=== PATIENT | female | born 1965 | race Two or more races ===

== ENCOUNTER 2017-10-19 12:24 | Emergency (ER) | payer OTHER, MEDICAID ==
[~2017-10-19] VITALS: Ht 157.5 cm; Wt 79.4 kg
[2017-10-19 12:31] VITALS: BP 162/71
[2017-10-19 14:11] LABS: BUN/Creatinine Ratio 6.1; Calcium 9.4 mg/dL (8.5-10.1); Potassium 5.3 mmol/L (3.5-5.1)
== END 2017-10-19 14:46 | disposition home or self-care (01) ==
LOC: ER 12:24
DX: R42 Dizziness and giddiness (principal); R79.9 Abnormal finding of blood chemistry, unspecified; E11.22 Type 2 diabetes mellitus with diabetic chronic kidney disease; I12.0 Hypertensive chronic kidney disease with stage 5 chronic kidney disease or end stage renal disease; N18.6 End stage renal disease; E78.5 Hyperlipidemia, unspecified; Z98.51 Tubal ligation status; Z87.891 Personal history of nicotine dependence
CPT/HCPCS: 36415; 80048; 93005

== ENCOUNTER 2017-12-04 12:08 | Inpatient (IN) | payer MEDICARE, MEDICAID ==
[~2017-12-04] VITALS: Ht 157.5 cm; Wt 84.3 kg
[2017-12-04] MEDS ORDERED: cloNIDine HCL 0.1 MG TAB ONE (12:29)
[2017-12-04] MEDS ORDERED: cloNIDine HCL 0.1 MG TAB PO ONE (12:30)
[2017-12-04] MEDS ORDERED: ONDANSETRON ODT 4 MG TAB PO ONE (12:45)
[2017-12-04 14:23] LABS: Basophils # (auto) 0.1 uL; Basophils % (auto) 0.6 % (0.0-2.0); Eosinophils # (auto) 0 uL; Eosinophils % (auto) 0.2 % (0.0-7.0); Hematocrit 39.3 % (36.0-46.0); Hemoglobin 12.9 g/dL (12.2-16.2); Lymphocytes # (auto) 0.5 uL; Mean Corpuscular Hemoglobin 30.3 pg (28.0-32.0); Mean Corpuscular Hgb Conc. 32.9 g/dL (32.0-36.0); Mean Corpuscular Volume 91.9 fL (80.0-100.0); Monocytes # (auto) 0.2 uL; Neutrophils # (auto) 10.9 uL; Neutrophils % (auto) 93.2 % (37.0-80.0); Platelet Count (auto) 241 10^3/uL (140-450); Red Blood Cells 4.28 10^6/uL (4.0-5.20); Red Cell Distribution Width 14.9 % (11.8-14.3); White Blood Cell 11.8 10^3/uL (4.4-10.8)
[2017-12-04 14:37] LABS: INR 0.98 (0.9-1.15); Partial Thromboplastin Time 28.7 sec (23.78-33.04); Prothrombin Time 10.5 sec (9.27-12.13)
[2017-12-04 14:51] LABS: Albumin 3.6 g/dL (3.4-5.0); BUN/Creatinine Ratio 5.8; Calcium 9.1 mg/dL (8.5-10.1)
[2017-12-04] MEDS ORDERED: LABETALOL HCL 5 MG/ML ML 20ML VIAL IV ONE (15:45)
[2017-12-04] MEDS: NICARDIPINE 25MG/250ML BAG KIT 250 ML IV SCH ×3 (17:27→20:39)
[2017-12-04] MEDS ORDERED: LABETALOL HCL 5 MG/ML ML 20ML VIAL IV PRN (18:15)
[2017-12-04] MEDS ORDERED: NITROGLYCERIN 0.4 MG SL TAB SL PRN (18:30)
[2017-12-04] MEDS ORDERED: FUROSEMIDE 40 MG/4 ML VIAL IV ONE (18:30)
[2017-12-04] MEDS ORDERED: ACETAMINOPHEN 325 MG TAB PO PRN (18:30)
[2017-12-04] MEDS ORDERED: TEMAZEPAM 15 MG CAP PO PRN (18:30)
[2017-12-04] MEDS ORDERED: DOCUSATE SOD 100 MG CAP PO PRN (18:30)
[2017-12-04] MEDS ORDERED: MORPHINE SULF INJ 2 MG/ML SYRINGE 1ML IV PRN ×2 (18:30)
[2017-12-04] MEDS ORDERED: cefTRIAXone 1GM/10ml IVPUSH 10 ML IV ONE (21:00)
[2017-12-04] MEDS: FAMOTIDINE 20 MG TAB PO SCH (21:48)
[2017-12-04] MEDS: cloNIDine HCL 0.1 MG TAB PO SCH (22:24)
[2017-12-04] MEDS: ATORVASTATIN 20 MG TAB PO SCH (22:24)
[2017-12-04] MEDS: SODIUM CHLOR 0.9% PF (SALINE LOCK) 10ML VIAL/SYR IV SCH (22:24)
[2017-12-04] MEDS: ACCU-CHEK COMFORT CURVE STRIP VI SCH (22:33)
[2017-12-04] MEDS: INSULIN LANTUS (GLARGINE) 1 /0.01ml (100units/ml) SC SCH (22:36)
[2017-12-04] MEDS: InsuLIN REG 1unit/0.01ml Soln (100units/ml) SC SCH (22:36)
[2017-12-04] MEDS: METOPROLOL TARTRATE 50 MG TAB PO SCH (23:10)
[2017-12-05] MEDS: NICARDIPINE 25MG/250ML BAG KIT 250 ML IV SCH ×2 (01:04→06:04)
[2017-12-05] MEDS: cloNIDine HCL 0.1 MG TAB PO PRN ×4 (04:19→17:48)
[2017-12-05 05:00] VITALS: BP 157/66
[2017-12-05] MEDS: SODIUM CHLOR 0.9% PF (SALINE LOCK) 10ML VIAL/SYR IV SCH ×3 (06:29→22:01)
[2017-12-05] MEDS: ACCU-CHEK COMFORT CURVE STRIP VI SCH ×4 (07:06→22:00)
[2017-12-05] MEDS: INSULIN LANTUS (GLARGINE) 1 /0.01ml (100units/ml) SC SCH ×2 (07:07→22:00)
[2017-12-05] MEDS: InsuLIN REG 1unit/0.01ml Soln (100units/ml) SC SCH ×4 (07:08→22:00)
[2017-12-05] MEDS: INSULIN LISPRO (HUMAN) 100 UNITS/ML ML SC SCH ×3 (07:08→16:48)
[2017-12-05 08:00] VITALS: BP 165/72
[2017-12-05] MEDS: ONDANSETRON HCL 4 MG/2 ML VIAL IV PRN ×2 (08:09→15:34)
[2017-12-05] MEDS: cloNIDine HCL 0.1 MG TAB PO SCH ×2 (09:58→21:56)
[2017-12-05] MEDS: FUROSEMIDE 40 MG/4 ML VIAL IV SCH (09:58)
[2017-12-05] MEDS: cefTRIAXone 1GM/10ml IVPUSH 10 ML IV SCH (09:58)
[2017-12-05] MEDS: METOPROLOL TARTRATE 50 MG TAB PO SCH ×2 (09:58→11:49)
[2017-12-05] MEDS: ASPirin-EC 81 mg tab PO SCH (09:58)
[2017-12-05] MEDS: MULTIPLE VITAMIN TAB PO SCH (09:59)
[2017-12-05 10:36] LABS: Basophils # (auto) 0.1 uL; Basophils % (auto) 0.4 % (0.0-2.0); Eosinophils # (auto) 0.1 uL; Eosinophils % (auto) 0.8 % (0.0-7.0); Hematocrit 38.5 % (36.0-46.0); Hemoglobin 12.3 g/dL (12.2-16.2); Lymphocytes # (auto) 1.2 uL; Lymphocytes % (auto) 9.4 % (10.0-50.0); Mean Corpuscular Hemoglobin 29.5 pg (28.0-32.0); Mean Corpuscular Hgb Conc. 31.9 g/dL (32.0-36.0); Mean Corpuscular Volume 92.6 fL (80.0-100.0); Monocytes # (auto) 0.6 uL; Monocytes % (auto) 4.4 % (0.0-12.0); Neutrophils # (auto) 11.1 uL; Platelet Count (auto) 250 10^3/uL (140-450); Red Blood Cells 4.16 10^6/uL (4.0-5.20); Red Cell Distribution Width 14.8 % (11.8-14.3)
[2017-12-05 10:53] LABS: Albumin 3.2 g/dL (3.4-5.0); BUN/Creatinine Ratio 6.1; Calcium 8.5 mg/dL (8.5-10.1); Potassium 4.9 mmol/L (3.5-5.1)
[2017-12-05 11:01] LABS: Bilirubin, Total 0.8 mg/dL (0.2-1.0); Total Protein 7.6 g/dL (6.4-8.2)
[2017-12-05] MEDS: DEXTROSE (50%) 50ML SYRG IV PRN (11:38)
[2017-12-05] MEDS: HYDROcodone-ACET 5/325MG TAB PO PRN ×2 (11:46→15:30)
[2017-12-05 12:41] VITALS: BP 159/70
[2017-12-05] MEDS ORDERED: cloNIDine HCL 0.1 MG TAB PO ONE (16:15)
[2017-12-05 16:46] VITALS: BP 231/89
[2017-12-05 20:00] VITALS: BP 197/86
[2017-12-05 21:42] VITALS: BP 197/86
[2017-12-05] MEDS: ATORVASTATIN 20 MG TAB PO SCH (22:00)
[2017-12-06] VITALS (7 sets, daily range): BP systolic 119–161; BP diastolic 51–77
[2017-12-06] MEDS: cloNIDine HCL 0.1 MG TAB PO PRN (00:22)
[2017-12-06] MEDS ORDERED: hydrALAZINE HCL 20 MG/ML VL IV ONE (02:30)
[2017-12-06] MEDS: ACCU-CHEK COMFORT CURVE STRIP VI SCH ×4 (06:42→22:00)
[2017-12-06] MEDS: InsuLIN REG 1unit/0.01ml Soln (100units/ml) SC SCH ×4 (06:43→22:00)
[2017-12-06] MEDS: INSULIN LISPRO (HUMAN) 100 UNITS/ML ML SC SCH ×3 (06:43→16:37)
[2017-12-06] MEDS: INSULIN LANTUS (GLARGINE) 1 /0.01ml (100units/ml) SC SCH ×2 (06:43→22:00)
[2017-12-06] MEDS: SODIUM CHLOR 0.9% PF (SALINE LOCK) 10ML VIAL/SYR IV SCH ×3 (06:44→22:10)
[2017-12-06 07:25] LABS: Basophils # (auto) 0 uL; Basophils % (auto) 0.5 % (0.0-2.0); Eosinophils # (auto) 0.1 uL; Eosinophils % (auto) 0.9 % (0.0-7.0); Hematocrit 39.6 % (36.0-46.0); Hemoglobin 13.1 g/dL (12.2-16.2); Lymphocytes # (auto) 1.1 uL; Lymphocytes % (auto) 10.9 % (10.0-50.0); Mean Corpuscular Hemoglobin 30.5 pg (28.0-32.0); Mean Corpuscular Hgb Conc. 33.1 g/dL (32.0-36.0); Mean Corpuscular Volume 92.3 fL (80.0-100.0); Monocytes # (auto) 0.7 uL; Monocytes % (auto) 6.3 % (0.0-12.0); Neutrophils # (auto) 8.6 uL; Neutrophils % (auto) 81.4 % (37.0-80.0); Nucleated Red Blood Cells % 0.1 %; Platelet Count (auto) 256 10^3/uL (140-450); Red Blood Cells 4.29 10^6/uL (4.0-5.20); Red Cell Distribution Width 15.4 % (11.8-14.3); White Blood Cell 10.5 10^3/uL (4.4-10.8)
[2017-12-06 07:45] LABS: Albumin 3.4 g/dL (3.4-5.0); BUN/Creatinine Ratio 4.9; Calcium 8.6 mg/dL (8.5-10.1); Potassium 4.1 mmol/L (3.5-5.1); Total Protein 7.6 g/dL (6.4-8.2)
[2017-12-06] MEDS: cefTRIAXone 1GM/10ml IVPUSH 10 ML IV SCH (09:22)
[2017-12-06] MEDS: FUROSEMIDE 40 MG/4 ML VIAL IV SCH (09:23)
[2017-12-06] MEDS: ONDANSETRON HCL 4 MG/2 ML VIAL IV PRN (09:23)
[2017-12-06] MEDS: METOPROLOL TARTRATE 50 MG TAB PO SCH ×3 (09:24→22:13)
[2017-12-06] MEDS: MULTIPLE VITAMIN TAB PO SCH (09:24)
[2017-12-06] MEDS: ASPirin-EC 81 mg tab PO SCH (09:24)
[2017-12-06] MEDS: cloNIDine HCL 0.1 MG TAB PO SCH ×2 (09:24→22:12)
[2017-12-06] MEDS ORDERED: NIFEdipine ER 30 MG TAB PO ONE (11:15)
[2017-12-06] MEDS: DEXTROSE (50%) 50ML SYRG IV PRN (16:33)
[2017-12-06] MEDS: HYDROcodone-ACET 5/325MG TAB PO PRN (20:40)
[2017-12-06] MEDS: FAMOTIDINE 20 MG TAB PO SCH (22:10)
[2017-12-06] MEDS: hydrALAZINE HCL 25 MG TAB PO SCH (22:11)
[2017-12-06] MEDS: ATORVASTATIN 20 MG TAB PO SCH (22:13)
[2017-12-07 05:00] VITALS: BP 135/61
[2017-12-07] MEDS: SODIUM CHLOR 0.9% PF (SALINE LOCK) 10ML VIAL/SYR IV SCH ×2 (06:18→14:00)
[2017-12-07] MEDS: hydrALAZINE HCL 25 MG TAB PO SCH ×2 (06:20→14:00)
[2017-12-07] MEDS: ACCU-CHEK COMFORT CURVE STRIP VI SCH ×2 (06:53→13:03)
[2017-12-07] MEDS: InsuLIN REG 1unit/0.01ml Soln (100units/ml) SC SCH ×2 (06:54→12:52)
[2017-12-07] MEDS: INSULIN LANTUS (GLARGINE) 1 /0.01ml (100units/ml) SC SCH (06:54)
[2017-12-07] MEDS: INSULIN LISPRO (HUMAN) 100 UNITS/ML ML SC SCH ×2 (06:55→11:30)
[2017-12-07 07:56] LABS: Basophils # (auto) 0 uL; Basophils % (auto) 0.6 % (0.0-2.0); Eosinophils # (auto) 0.2 uL; Eosinophils % (auto) 1.8 % (0.0-7.0); Hematocrit 39.7 % (36.0-46.0); Lymphocytes % (auto) 11.3 % (10.0-50.0); Mean Corpuscular Hemoglobin 30.1 pg (28.0-32.0); Mean Corpuscular Hgb Conc. 32.7 g/dL (32.0-36.0); Mean Corpuscular Volume 92.2 fL (80.0-100.0); Monocytes # (auto) 0.6 uL; Monocytes % (auto) 6.9 % (0.0-12.0); Neutrophils % (auto) 79.4 % (37.0-80.0); Nucleated Red Blood Cells % 0.1 %; Platelet Count (auto) 246 10^3/uL (140-450); Red Cell Distribution Width 14.9 % (11.8-14.3); White Blood Cell 8.8 10^3/uL (4.4-10.8)
[2017-12-07 08:10] LABS: Albumin 3.2 g/dL (3.4-5.0); BUN/Creatinine Ratio 6.1; Bilirubin, Total 0.9 mg/dL (0.2-1.0); Calcium 8.6 mg/dL (8.5-10.1); Potassium 4.7 mmol/L (3.5-5.1); Total Protein 7.3 g/dL (6.4-8.2)
[2017-12-07 09:00] VITALS: BP 118/64
[2017-12-07] MEDS ORDERED: NIFEdipine ER 30 MG TAB PO SCH (10:00)
[2017-12-07] MEDS: cloNIDine HCL 0.1 MG TAB PO SCH (10:00)
[2017-12-07] MEDS ORDERED: SODIUM CHL 0.9% 1000 ML BAG XX ONE (12:00)
[2017-12-07] MEDS: MULTIPLE VITAMIN TAB PO SCH (12:52)
[2017-12-07] MEDS: ASPirin-EC 81 mg tab PO SCH (12:52)
[2017-12-07 13:00] VITALS: BP 147/69
[2017-12-07 14:15] VITALS: BP 147/69
[2017-12-07] MEDS: FUROSEMIDE 40 MG/4 ML VIAL IV SCH (15:16)
[2017-12-07 16:35] VITALS: BP 145/67
== END 2017-12-07 15:30 | disposition home or self-care (01) | DRG 291 ==
LOC: ER 12:08 → TELE 12:09 → TELE-WESTW 12-05 01:15
PROVIDERS: ADMIT Internal Medicine; ATTEND Family Medicine
PROC: 5A1D70Z Performance of Urinary Filtration, Intermittent, Less than 6 Hours Per Day (ICD-10-PCS; principal; 2017-12-05)
DX: I13.2 Hypertensive heart and chronic kidney disease with heart failure and with stage 5 chronic kidney disease, or end stage renal disease (principal); N18.6 End stage renal disease; I50.43 Acute on chronic combined systolic (congestive) and diastolic (congestive) heart failure; N39.0 Urinary tract infection, site not specified; N25.81 Secondary hyperparathyroidism of renal origin; K29.00 Acute gastritis without bleeding; Z99.2 Dependence on renal dialysis; E78.5 Hyperlipidemia, unspecified; Z95.1 Presence of aortocoronary bypass graft; I25.10 Atherosclerotic heart disease of native coronary artery without angina pectoris; E11.21 Type 2 diabetes mellitus with diabetic nephropathy; E11.22 Type 2 diabetes mellitus with diabetic chronic kidney disease; E78.00 Pure hypercholesterolemia, unspecified; K57.90 Diverticulosis of intestine, part unspecified, without perforation or abscess without bleeding; Z82.49 Family history of ischemic heart disease and other diseases of the circulatory system; Z83.3 Family history of diabetes mellitus
CPT/HCPCS: 36415; 71045; 74176; 80053; 82962; 83036; 83605; 83880; 84484; 85025; 85610; 85730; 87040; 87081; 87086; 90935; 93005; 93306; 96374; 96375; J0696; J1642; J1815; J2405; Q0162

== ENCOUNTER 2021-03-31 20:34 | Inpatient (IN) | payer MEDICARE, MEDICAID ==
[~2021-03-31] VITALS: Ht 157.5 cm; Wt 77.1 kg
[2021-03-31] MEDS ORDERED: fentaNYL CITRATE 100 MCG/2 ML VL IV ONE (21:00)
[2021-03-31] MEDS ORDERED: MAGNESIUM SULFATE 1GM/100ML 100 ML IV ONE (21:15)
[2021-03-31] MEDS ORDERED: CALCIUM GLUC 1,000mg/50ml-NS 50 ML IV ONE (21:15)
[2021-03-31] MEDS ORDERED: DOPamine 1600MCG/ML D5W 250 ML IV ONE (21:25)
[2021-03-31 21:30] LABS: Albumin 1.9 g/dL (3.4-5.0); Calcium 9.3 mg/dL (8.5-10.1); Potassium 4.5 mmol/L (3.5-5.1)
[2021-03-31 21:39] LABS: BUN/Creatinine Ratio 11.1; Bilirubin, Total 0.5 mg/dL (0.2-1.0); Total Protein 4.4 g/dL (6.4-8.2)
[2021-03-31] MEDS ORDERED: DOPamine 1600MCG/ML D5W 250 ML IV SCH (21:45)
[2021-03-31] MEDS: DOPamine 1600MCG/ML D5W 250 ML IV SCH (22:00)
[2021-03-31] MEDS: NOREPINEPHRINE 8 MG/250ML KIT 250 ML IV SCH ×2 (22:13→23:00)
[2021-03-31 22:44] LABS: Basophils # (auto) 0.1 10 ^3/uL (0-0.2); Basophils % (auto) 0.6 % (0.0-2.0); Eosinophils # (auto) 0 10 ^3/uL (0-0.8); Eosinophils % (auto) 0.2 % (0.0-7.0); Hematocrit 31.8 % (36.0-46.0); Lymphocytes # (auto) 0.8 10 ^3/uL (0.4-5.4); Lymphocytes % (auto) 6.4 % (10.0-50.0); Mean Corpuscular Hemoglobin 28.3 pg (28.0-32.0); Mean Corpuscular Hgb Conc. 31.5 g/dL (32.0-36.0); Mean Corpuscular Volume 89.9 fL (80.0-100.0); Monocytes # (auto) 0.5 10 ^3/uL (0-1.3); Monocytes % (auto) 4.4 % (0.0-12.0); Neutrophils # (auto) 10.6 10 ^3/uL (1.6-8.6); Neutrophils % (auto) 88.4 % (37.0-80.0); Red Blood Cells 3.54 10^6/uL (4.0-5.20); Red Cell Distribution Width 15.9 % (11.8-14.3)
[2021-03-31] MEDS ORDERED: LORazepam 2MG/ML-1ML VIAL IV ONE (22:45)
[2021-03-31 23:02] LABS: Albumin 3.2 g/dL (3.4-5.0); Calcium 8.6 mg/dL (8.5-10.1)
[2021-03-31 23:09] LABS: BUN/Creatinine Ratio 11.3
[2021-03-31 23:10] LABS: Total Protein 7.3 g/dL (6.4-8.2)
[2021-03-31 23:12] LABS: Potassium 7.3 mmol/L (3.5-5.1)
[2021-03-31 23:13] LABS: Magnesium 4.5 mg/dL (1.6-2.6)
[2021-03-31] MEDS ORDERED: diphenhdrAMINE HCL 50 MG/1 ML VL IV ONE (23:30)
[2021-04-01] MEDS ORDERED: CALCIUM GLUC 1,000mg/50ml-NS 50 ML IV ONE ×4 (00:45→20:00)
[2021-04-01] MEDS ORDERED: SODIUM ZIRCONIUM CYCL 10 GM PAK PO ONE ×3 (00:45→06:45)
[2021-04-01] MEDS ORDERED: MORPHINE SULFATE 4 MG/ML SYR/VIAL IV ONE (01:45)
[2021-04-01] MEDS ORDERED: ONDANSETRON HCL 4 MG/2 ML VIAL ONE (02:15)
[2021-04-01] MEDS ORDERED: ONDANSETRON HCL 4 MG/2 ML VIAL IV ONE (02:30)
[2021-04-01] MEDS ORDERED: NITROGLYCERIN 0.4 MG SL TAB SL PRN (03:45)
[2021-04-01] MEDS ORDERED: ONDANSETRON HCL 4 MG/2 ML VIAL IV PRN (03:45)
[2021-04-01] MEDS ORDERED: ACETAMINOPHEN 325 MG TAB PO PRN (03:45)
[2021-04-01] MEDS ORDERED: DEXTROSE (50%) 50ML SYRG IV PRN (03:45)
[2021-04-01] MEDS ORDERED: MORPHINE SULFATE INJECTION 2 MG/ML SYRG IV PRN (03:45)
[2021-04-01 04:50] LABS: BUN/Creatinine Ratio 10.8
[2021-04-01] MEDS: ACCU-CHEK COMFORT CURVE STRIP VI SCH ×4 (06:41→22:30)
[2021-04-01] MEDS ORDERED: InsuLIN REG 1unit/0.01ml Soln (100units/ml) IV ONE ×2 (06:45→20:00)
[2021-04-01] MEDS ORDERED: ALBUTEROL SULF 2.5 MG/0.5ML(0.5%) NEB SOLN NEB ONE (06:45)
[2021-04-01] MEDS ORDERED: DEXTROSE (50%) 50ML SYRG IV ONE ×2 (06:45→20:00)
[2021-04-01] MEDS ORDERED: SODIUM BICARBONATE 8.4 % INJ 50ML VIAL IV ONE (06:45)
[2021-04-01] MEDS: InsuLIN REG 1unit/0.01ml Soln (100units/ml) SC SCH ×4 (06:50→22:30)
[2021-04-01] MEDS ORDERED: SODIUM CHL 0.9% 1000 ML BAG XX ONE (07:45)
[2021-04-01] MEDS ORDERED: diphenhdrAMINE HCL 50 MG/1 ML VL IV ONE (08:30)
[2021-04-01] MEDS ORDERED: LORazepam 0.5 MG TAB PO ONE (10:00)
[2021-04-01] MEDS ORDERED: LORazepam 0.5 MG TAB ONE (10:03)
[2021-04-01] MEDS: PANTOPRAZOLE 40 MG TAB PO SCH (10:12)
[2021-04-01] MEDS: DOPamine 1600MCG/ML D5W 250 ML IV SCH (13:50)
[2021-04-01] MEDS: HYDROcodone-ACET 5/325MG TAB PO PRN ×2 (15:46→22:00)
[2021-04-01 17:06] LABS: Basophils # (auto) 0 10 ^3/uL (0-0.2); Basophils % (auto) 0.6 % (0.0-2.0); Eosinophils # (auto) 0 10 ^3/uL (0-0.8); Eosinophils % (auto) 0.2 % (0.0-7.0); Hematocrit 26.5 % (36.0-46.0); Hemoglobin 8.7 g/dL (12.2-16.2); Lymphocytes # (auto) 0.7 10 ^3/uL (0.4-5.4); Lymphocytes % (auto) 9.5 % (10.0-50.0); Mean Corpuscular Hemoglobin 29.1 pg (28.0-32.0); Mean Corpuscular Hgb Conc. 32.8 g/dL (32.0-36.0); Mean Corpuscular Volume 88.5 fL (80.0-100.0); Monocytes # (auto) 0.6 10 ^3/uL (0-1.3); Monocytes % (auto) 8.4 % (0.0-12.0); Neutrophils # (auto) 6.3 10 ^3/uL (1.6-8.6); Neutrophils % (auto) 81.3 % (37.0-80.0); Nucleated Red Blood Cells % 0.1 %; White Blood Cell 7.7 10^3/uL (4.4-10.8)
[2021-04-01 17:26] LABS: Albumin 2.6 g/dL (3.4-5.0); BUN/Creatinine Ratio 9.2; Calcium 8.3 mg/dL (8.5-10.1)
[2021-04-01 17:29] LABS: Total Protein 5.9 g/dL (6.4-8.2)
[2021-04-01 17:51] LABS: Potassium 5.7 mmol/L (3.5-5.1)
[2021-04-01] MEDS ORDERED: EPOETIN ALFA-EPBX 10,000 UNIT/1ML VIAL SC ONE (21:00)
[2021-04-01] MEDS: SODIUM ZIRCONIUM CYCL 10 GM PAK PO SCH (21:30)
[2021-04-01] MEDS: ATORVASTATIN 20 MG TAB PO SCH (22:30)
[2021-04-02] VITALS (9 sets, daily range): BP systolic 106–132; BP diastolic 48–72
[2021-04-02] MEDS: SODIUM ZIRCONIUM CYCL 10 GM PAK PO SCH ×3 (06:18→20:52)
[2021-04-02] MEDS: InsuLIN REG 1unit/0.01ml Soln (100units/ml) SC SCH ×4 (07:00→22:44)
[2021-04-02] MEDS ORDERED: SODIUM CHL 0.9% 1000 ML BAG XX ONE (07:00)
[2021-04-02] MEDS: ACCU-CHEK COMFORT CURVE STRIP VI SCH ×4 (07:04→22:46)
[2021-04-02 07:34] LABS: Basophils % (auto) 0.8 % (0.0-2.0); Eosinophils # (auto) 0.1 10 ^3/uL (0-0.8); White Blood Cell 6.4 10^3/uL (4.4-10.8)
[2021-04-02 07:37] LABS: Basophils # (auto) 0 10 ^3/uL (0-0.2); Hemoglobin 8.2 g/dL (12.2-16.2); Lymphocytes # (auto) 0.7 10 ^3/uL (0.4-5.4); Lymphocytes % (auto) 10.6 % (10.0-50.0); Mean Corpuscular Hemoglobin 29.2 pg (28.0-32.0); Mean Corpuscular Hgb Conc. 32.6 g/dL (32.0-36.0); Mean Corpuscular Volume 89.6 fL (80.0-100.0); Monocytes # (auto) 0.7 10 ^3/uL (0-1.3); Monocytes % (auto) 10.3 % (0.0-12.0); Neutrophils # (auto) 4.9 10 ^3/uL (1.6-8.6); Neutrophils % (auto) 77.3 % (37.0-80.0); Nucleated Red Blood Cells % 0.1 %
[2021-04-02 07:56] LABS: Calcium 8.1 mg/dL (8.5-10.1); Potassium 4.5 mmol/L (3.5-5.1)
[2021-04-02 08:02] LABS: Albumin 2.7 g/dL (3.4-5.0); BUN/Creatinine Ratio 9.2; Bilirubin, Total 0.7 mg/dL (0.2-1.0); Total Protein 5.9 g/dL (6.4-8.2)
[2021-04-02] MEDS: PANTOPRAZOLE 40 MG TAB PO SCH (10:00)
[2021-04-02] MEDS ORDERED: LIDOCAINE 2%HCL (LOCAL ANESTH.) INJ 20ML MDV ONE (10:31)
[2021-04-02] MEDS ORDERED: IODIXANOL 320MG/ML 100ML BTL IV ONE (10:31)
[2021-04-02] MEDS ORDERED: fentaNYL CITRATE 100 MCG/2 ML VL ONE ×2 (10:45→12:08)
[2021-04-02] MEDS ORDERED: MIDAZOLAM HCL 2MG/2ML 2ml VIAL (1mg/ml) ONE (10:45)
[2021-04-02] MEDS ORDERED: HEPARIN SODIUM (PORCINE) 5000 UNITS/ML 1ML VIAL ONE (11:24)
[2021-04-02] MEDS ORDERED: HEPARIN 1,000 UNITS/ml 1ML VIAL ONE (12:19)
[2021-04-02] MEDS: SODIUM CHLOR 0.9% PF (SALINE LOCK) 10ML VIAL/SYR IV SCH ×2 (14:00→22:57)
[2021-04-02 16:05] LABS: INR 1.16 (0.9-1.15); Partial Thromboplastin Time 25.7 sec (23.6-33.0)
[2021-04-02] MEDS: HYDROcodone-ACET 5/325MG TAB PO PRN (19:11)
[2021-04-02] MEDS: NOREPINEPHRINE 8 MG/250ML KIT 250 ML IV SCH (20:49)
[2021-04-02] MEDS: ATORVASTATIN 20 MG TAB PO SCH (20:52)
[2021-04-02] MEDS ORDERED: EPOETIN ALFA-EPBX 10,000 UNIT/1ML VIAL SC ONE (21:00)
[2021-04-03] MEDS: HYDROcodone-ACET 5/325MG TAB PO PRN (01:28)
[2021-04-03] MEDS: SODIUM ZIRCONIUM CYCL 10 GM PAK PO SCH ×2 (05:52→15:08)
[2021-04-03] MEDS: SODIUM CHLOR 0.9% PF (SALINE LOCK) 10ML VIAL/SYR IV SCH ×2 (05:52→15:10)
[2021-04-03] MEDS: ACCU-CHEK COMFORT CURVE STRIP VI SCH ×3 (05:59→17:00)
[2021-04-03] MEDS: InsuLIN REG 1unit/0.01ml Soln (100units/ml) SC SCH ×3 (05:59→17:02)
[2021-04-03] MEDS ORDERED: SODIUM CHL 0.9% 1000 ML BAG XX ONE (07:00)
[2021-04-03 08:00] VITALS: BP 130/74
[2021-04-03] MEDS ORDERED: ALBUMIN 25% 100 ML IV ONE (11:15)
[2021-04-03] MEDS ORDERED: diphenhdrAMINE HCL 50 MG/1 ML VL IM ONE (11:45)
[2021-04-03 12:59] LABS: Hepatitis C Antibody Negative (Negative)
[2021-04-03] MEDS: PANTOPRAZOLE 40 MG TAB PO SCH (15:09)
[2021-04-03 16:16] LABS: Hematocrit 28.9 % (36.0-46.0); Hemoglobin 9.3 g/dL (12.2-16.2)
[2021-04-03 17:48] VITALS: BP 143/71
[2021-04-03] MEDS ORDERED: EPOETIN ALFA-EPBX 10,000 UNIT/1ML VIAL SC ONE (21:00)
== END 2021-04-03 18:25 | disposition home or self-care (01) | DRG 252 ==
LOC: EDBD 20:34 → ER 20:36 → TELE 04-01 03:42 → TELE-WESTW 04-02 18:08
PROVIDERS: ADMIT Nurse Practitioner; ATTEND Internal Medicine
PROC: 5A2204Z Restoration of Cardiac Rhythm, Single (ICD-10-PCS; 2021-03-31)
PROC: 5A1D70Z Performance of Urinary Filtration, Intermittent, Less than 6 Hours Per Day (ICD-10-PCS; principal; 2021-04-01)
PROC: 057Y3ZZ Dilation of Upper Vein, Percutaneous Approach (ICD-10-PCS; 2021-04-02)
PROC: B51MYZZ Fluoroscopy of Right Upper Extremity Veins using Other Contrast (ICD-10-PCS; 2021-04-02)
PROC: B516YZZ Fluoroscopy of Right Subclavian Vein using Other Contrast (ICD-10-PCS; 2021-04-02)
PROC: 5A1D70Z Performance of Urinary Filtration, Intermittent, Less than 6 Hours Per Day (ICD-10-PCS; 2021-04-03)
PROC: 0W9G3ZZ Drainage of Peritoneal Cavity, Percutaneous Approach (ICD-10-PCS; 2021-04-03)
DX: I47.2 Ventricular tachycardia (principal); N18.6 End stage renal disease; E43 Unspecified severe protein-calorie malnutrition; T82.868A Thrombosis due to vascular prosthetic devices, implants and grafts, initial encounter; R18.8 Other ascites; I13.2 Hypertensive heart and chronic kidney disease with heart failure and with stage 5 chronic kidney disease, or end stage renal disease; K76.6 Portal hypertension; K74.60 Unspecified cirrhosis of liver; E87.5 Hyperkalemia; E87.70 Fluid overload, unspecified; Z20.822 Contact with and (suspected) exposure to COVID-19; E83.51 Hypocalcemia; D63.8 Anemia in other chronic diseases classified elsewhere; E11.22 Type 2 diabetes mellitus with diabetic chronic kidney disease; E78.5 Hyperlipidemia, unspecified; Y71.2 Prosthetic and other implants, materials and accessory cardiovascular devices associated with adverse incidents; E78.00 Pure hypercholesterolemia, unspecified; I25.10 Atherosclerotic heart disease of native coronary artery without angina pectoris; K21.9 Gastro-esophageal reflux disease without esophagitis; Z82.49 Family history of ischemic heart disease and other diseases of the circulatory system; Z83.3 Family history of diabetes mellitus; Z91.15 Patient's noncompliance with renal dialysis; Z91.19 Patient's noncompliance with other medical treatment and regimen; Z95.1 Presence of aortocoronary bypass graft; Y92.89 Other specified places as the place of occurrence of the external cause; Z99.2 Dependence on renal dialysis; Z68.31 Body mass index [BMI] 31.0-31.9, adult
CPT/HCPCS: 36415; 36556; 36901; 37248; 49083; 71045; 76080; 76705; 76942; 80048; 80053; 82962; 83735; 83880; 84484; 85014; 85018; 85025; 85610; 85730; 86803; 86850; 86900; 86901; 87205; 87340; 87426; 89051; 90935; 93005; 93306; 94640; 96365; 96366; 96375; 99152; 99153; G0378; J1815; J2250; J2405; P9047; Q9967